=== PATIENT | female | born 1995 | race African-American/Black ===

== ENCOUNTER 2016-10-05 13:48 | Emergency (ER) | payer OTHER ==
[~2016-10-05 13:48] MED LIST: AMOXICILLIN PO
== END 2016-10-05 15:15 | disposition home or self-care (01) ==
LOC: CFTX 13:48 → CED 13:48 → CFTX 15:15
DX: M67.431 Ganglion, right wrist (principal); Z79.899 Other long term (current) drug therapy
CPT/HCPCS: 29125; 99283